=== PATIENT | female | born 1990 | race African-American/Black ===

== ENCOUNTER 2016-04-04 16:01 | Emergency (ER) | payer OTHER ==
[~2016-04-04] VITALS: Ht 167.6 cm; Wt 55.0 kg
[2016-04-04 16:01] VITALS: Ht 167.6 cm; Wt 55.0 kg
[2016-04-04] MEDS ORDERED: HALOPERIDOL 5 MG INJ IM STA (16:02)
[2016-04-04] MEDS ORDERED: LORAZEPAM 2 MG INJ ONE (16:11)
[2016-04-04] MEDS ORDERED: LORAZEPAM 2 MG INJ IM ONE (16:30)
[2016-04-04 17:18] LABS: BASOPHILS % 0.4 % (0.0-2.0); EOSINOPHILS # 0.2 10^3/ul (0.0-0.5); HEMOGLOBIN 12.4 g/dl (12.0-16.0); LYMPHOCYTES % 21.7 % (15.0-51.0); MEAN CORPUSCULAR HEMOGLOBIN 29.6 pg (29.0-33.0); MEAN CORPUSCULAR HGB CONC 32.7 g/dl (32.0-37.0); MEAN CORPUSCULAR VOLUME 90.6 fl (82.0-101.0); MONOCYTE # 0.8 10^3/ul (0.3-0.9); MONOCYTES % 8.8 % (0.0-11.0); NEUTROPHIL # 6.3 10^3/ul (1.6-7.5); NEUTROPHILS % 67.1 % (39.0-77.0); PLATELET COUNT 174 10^3/UL (140-440); RED CELL DISTRIBUTION WIDTH 14.3 % (11.5-14.5); UNCORRECTED WBC 9.4 10^3/ul (4.8-10.8); WHITE BLOOD COUNT 9.4 10^3/ul (4.8-10.8)
[2016-04-04 17:21] LABS: CONDITION 1
[2016-04-04 17:26] LABS: ALBUMIN 3.7 g/dl (3.3-4.9)
[2016-04-04 17:27] LABS: CHLORIDE 103 mmol/L (97-110); POTASSIUM 3.8 mmol/L (3.5-5.1); SODIUM 138 mmol/L (135-144)
[2016-04-04 17:29] LABS: ALANINE AMINOTRANSFERASE 36 IU/L (13-69); ALBUMIN/GLOBULIN RATIO 1.12; ALKALINE PHOSPHATASE 58 IU/L (42-121); ANION GAP 15 (8-16); ASPARTATE AMINO TRANSFERASE 34 IU/L (15-46); BILIRUBIN,INDIRECT 0.2 mg/dl (0-1.1); BILIRUBIN,TOTAL 0.2 mg/dl (0.2-1.3); BLOOD UREA NITROGEN 10 mg/dl (7-20); CARBON DIOXIDE 24 mmol/L (21-31); CREATININE 0.91 mg/dl (0.44-1.00); GLUCOSE 79 mg/dl (70-220)
[2016-04-04 17:30] LABS: CALCIUM 9.4 mg/dl (8.4-10.2)
[2016-04-04 17:40] LABS: ACETAMINOPHEN < 10.0 ug/ml (10.0-30.0); ETHANOL < 10.0 mg/dl; SALICYLATE < 1.0 mg/dl (5.0-30.0)
[2016-04-04] MEDS ORDERED: OLAN10TA7 PO (17:42)
[2016-04-04] MEDS ORDERED: NAPR550T2 PO (17:43)
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
--- NOTE | 2016-04-05 03:23 | PSY ---
Date/Time of Note Date/Time of Note DATE: 04/05/16 TIME: 03:13 Psychiatric Subjective Eval Subjective Evaluation Patient location: emergency Chief Complaint: BIB RA FOR EVAL OF AGITATION. PT RUNNING IN STREETS YELLING. Reason for consult: PT CONFUSED AND AGIATED. PSYCH EVAL History of present illness patient is a 25 yo female living with 2 roomates, working at [employer] with PPH Of bipolar do who was brought in to the ER by the police due to being agitated and disorganized in the street, in the ER she continued to be agitated and was medicated with haldol 10 mg and ativan 2 mg and slept until 45 mn ago. During interview patient is calm and collected. She is alert and oriented times 3, she tells me that the certified control systems technician arrested her because she was yelling freedom in the streets and she was agitated in the ER because she did not want to be in the hospital. She states that she is just coming from a trip from [place] and so she has not been feeling depressed or anxious. she denies any paranoia or hallucination, she denies any si or hi , denies any drug or alcohol use except THC, she has a THC card, she uses THC for sleep and increase appetite. Past psychiatric history past admission in august for 3 days for similar behavior no past suicidal attempt Medical history Problems Medical Problems: (1) Acute psychosis Status: Acute (2) Agitation Status: Acute (3) Gifty Status: Acute (4) Psychosis Status: Acute Allergies: Coded Allergies: No Known Allergy (Unverified , 10/16/15) Substance Abuse Substance use: No known substance abuse Social History Marital status: single Level of education: hs DPA/Conservatorship: No Occupation/Halfway: employed in [employer] Psychiatric Objective Eval Review of Systems: Review of Systems: Not Applicable Physical Examination: Physical Examination: Applicable Sleep: Insomnia, Adequate Appetite: Decreased Energy: Increased Interest: Increased Mental Status Examination: Appearance: Groomed, Disheveled Eye Contact: Fair Psychomotor Activity: Normal Behavior: Cooperative Speech: Clear AFFECT: Appropriate Mood: Irritable Though Process: Linear Thought Content: Normal Suicidal: No Homicidal: No On 72 hour hold: No Orientation: x4 Cognition: Alert Insight: Intact Judgement: Intact Attention Span: Intact Laboratory Results Laboratory Tests Test 04/04/16 17:00 Acetaminophen Level < 10.0ug/ml Alanine Aminotransferase (ALT/SGPT) 36IU/L Albumin 3.7g/dl Albumin/Globulin Ratio 1.12 Alkaline Phosphatase 58IU/L Anion Gap 15 Aspartate Amino Transf (AST/SGOT) 34IU/L Basophils # 0.010^3/ul Basophils % 0.4% Blood Urea Nitrogen 10mg/dl Calcium Level 9.4mg/dl Carbon Dioxide Level 24mmol/L Chloride Level 103mmol/L Creatinine 0.91mg/dl Direct Bilirubin 0.00mg/dl Eosinophils # 0.210^3/ul Eosinophils % 2.0% Ethyl Alcohol Level < 10.0mg/dl Globulin 3.30g/dl Glucose Level 79mg/dl Hematocrit 38.0% Hemoglobin 12.4g/dl Indirect Bilirubin 0.2mg/dl Lymphocytes # 2.010^3/ul Lymphocytes % 21.7% Mean Corpuscular Hemoglobin 29.6pg Mean Corpuscular Hemoglobin Concent 32.7g/dl Mean Corpuscular Volume 90.6fl Mean Platelet Volume 10.0fl Monocytes # 0.810^3/ul Monocytes % 8.8% Neutrophils # 6.310^3/ul Neutrophils % 67.1% Nucleated Red Blood Cells # 0.010^3/ul Nucleated Red Blood Cells % 0.0/100WBC Platelet Count 39893^3/UL Potassium Level 3.8mmol/L Red Blood Count 4.2010^6/ul Red Cell Distribution Width 14.3% Salicylates Level < 1.0mg/dl Sodium Level 138mmol/L Total Bilirubin 0.2mg/dl Total Protein 7.0g/dl White Blood Count 9.410^3/ul Assessment and Plan Assessment/Diagnosis [place] I: mood do nos r.o bipolar do [place] II: deferred [place] III: as per record [place] IV: poor social support [place] V: gaf 60 Recommendation/Plan Medication Management refuses meds Follow-up/Disposition In my opinion,for this patient, outpatient care is the least restrictive option. Based on available evidence, this condition CAN be safely treated at a lower level of care effective today. Patient is stable without clear and convincing evidence of imminent danger due to mental illness that require acute inpatient psychiatric care as the least restrictive alternative. Please discharge patient with referral for follow up to a outpatient mental health clinic for psychotherapy and medication. [id number] Recommendation: Release Hold BRENDA LINARES MD Apr 05, 2016 03:23
[2016-04-05 04:55] VITALS: BP 149/88; PULSE 79; RESP 18
== END 2016-04-05 04:55 ==
LOC: E/R 16:01
DX: F29 Unspecified psychosis not due to a substance or known physiological condition (principal); R40.2252 Coma scale, best verbal response, oriented, at arrival to emergency department; R40.2362 Coma scale, best motor response, obeys commands, at arrival to emergency department; R40.2142 Coma scale, eyes open, spontaneous, at arrival to emergency department
CPT/HCPCS: 80053; 85025; 96372; 99291; G0478; J1630; J2060